=== PATIENT | female | born 1975 | race Caucasian/White ===

== ENCOUNTER 2016-09-30 12:20 | Emergency (ER) | payer MEDICAID ==
[~2016-09-30] VITALS: Wt 55.4 kg
[~2016-09-30 12:20] MED LIST: ACET1TAB40 PO; CLOT30CR24 TOP; HYDR-3010 PO; HYDR-906 PO; IBUP-1542 PO; NAPR-688 PO; VALA500T PO
[2016-09-30] MEDS ORDERED: VALA10004 PO (15:05)
[2016-09-30] MEDS ORDERED: VALA1000 PO (15:06)
--- NOTE | 2016-09-30 15:47 | ERD ---
ER Documentation Chief Complaint Date/Time DATE: 09/30/16 TIME: 15:45 Chief Complaint mouth sore intermittent for the past few months. HPI This is a 40-year-old female presenting to the emergency department complaining of cold sores that are developing her mouth. Patient admits to having a tingling sensation and a history of cold sores. Patient states that it has been coming and going for the past few months. Patient states that she has tried Abreva and cold compresses which did not help her. Patient has not tried any other medications. Patient states that she tried acyclovir in the past. She denies fever ROS All systems reviewed and are negative except as per history of present illness. Medications Home Meds Active Scripts Valacyclovir HCl (Valacyclovir) 1,000 Mg Tablet, 2000 MG PO BID for 1 Day, #8 TAB Prov:BRYANT SMITH PA-C 09/30/16 Valacyclovir HCl (Valtrex) 1,000 Mg Tablet, 500 MG PO BID for 3 Days, #12 TAB Prov:BRYANT SMITH PA-C 09/30/16 Hydrocodone/Acetaminophen ([place] 5-325 Tablet) 1 Each Tablet, 1 TAB PO Q6H Y for PAIN, #10 TAB Prov:JUAN M RODRIGUEZ PA-C 07/09/16 Ibuprofen* (Motrin*) 600 Mg Tab, 600 MG PO Q6, #20 TAB Prov:JUAN M RODRIGUEZ PA-C 07/09/16 Naproxen* (Naproxen*) 500 Mg Tablet, 500 MG PO BID Y for PAIN, #20 TAB Prov:ROBERT HARP DO 05/20/16 Valacyclovir Hcl* (Valacyclovir Hcl*) 500 Mg Tablet, 1000 MG PO ONCE, #20 TAB 2 tabs prn cold sore symptoms. Can repeat in 6 hours as needed. Prov:ROBERT HARP DO 05/20/16 Hydroxyzine Hcl* (Hydroxyzine Hcl*) 10 Mg Tablet, 10 MG PO Q6H Y for ITCHING, # 10 TAB Prov:BERNABE SCHWARTZ NP 12/12/15 Acetaminophen-Codeine* (Acetaminophen-Cod #3*) 300-30 Mg Tab, 1 TAB PO Q4H Y for PAIN, #15 TAB Prov:BERNABE SCHWARTZ NP 12/12/15 Clotrimazole* (Clotrimazole* AF) 1% - 30 Gm Cream.gm., 1 APPLIC TOP BID for 7 Days, TUB Prov:BERNABE SCHWARTZMao BEARD 12/12/15 Allergies Allergies: Coded Allergies: No Known Allergy (Unverified , 12/12/15) PMhx/Soc History of Surgery: No Anesthesia Reaction: No Hx Neurological Disorder: No Hx Respiratory Disorders: No Hx Cardiac Disorders: No Hx Psychiatric Problems: No Hx Miscellaneous Medical Probl: No Hx Alcohol Use: No Hx Substance Use: No Hx Tobacco Use: No Physical Exam Vitals Vital Signs Date Time Temp Pulse Resp B/P Pulse Ox O2 Delivery O2 Flow Rate FiO2 09/30/16 12:23 98.8 75 18 106/55 98 Physical Exam Const: Well-developed well nourished Head: Atraumatic Eyes: Normal Conjunctiva ENT: Normal External Ears, Nose and Mouth. Neck: Full range of motion..~ No meningismus. Resp: Clear to auscultation bilaterally Cardio: Regular rate and rhythm, no murmurs Abd: Soft, non tender, non distended. Normal bowel sounds Skin: Vesicular papules on legs Back: No midline or flank tenderness Ext: No cyanosis, or edema Neur: Awake and alert Psych: Normal Mood and Affect Results 24 hrs This is a 40-year-old female with a history of herpes labialis presenting to the emergency room complaining of vesicular lesions on her lips consistent with herpes labialis. Patient appears well, stable vital signs. I have a low suspicion for cellulitis. Patient is suitable for outpatient prescriptions with valacyclovir, 2000 mg twice daily for 1 day. I discussed with patient to follow-up with her primary care physician. Discussed return to the ER for any worsening signs or symptoms. Patient understands and agrees with this plan Departure Diagnosis: Primary Impression: Herpes labialis Condition: Stable Patient Instructions: Herpes Labialis, Hsv: Type I Additional Instructions: FOLLOW UP WITH YOUR PRIMARY CARE PHYSICIAN TOMORROW.Return to this facility if you are not improving as expected. Take all medicines as directed. Return to this facility if you are not improving as expected. BRYANT SMITH PA-C Sep 30, 2016 15:47
== END 2016-09-30 15:07 | disposition home or self-care (01) ==
LOC: E/R 12:20
DX: B00.1 Herpesviral vesicular dermatitis (principal)
CPT/HCPCS: 99283

== ENCOUNTER 2016-10-23 13:13 | Emergency (ER) | payer MEDICAID ==
[~2016-10-23] VITALS: Wt 54.1 kg
[~2016-10-23 13:13] MED LIST changes: +VALA1000 PO; +VALA10004 PO
[2016-10-23] MEDS ORDERED: ACYC800T57 PO (14:52)
[2016-10-23] MEDS ORDERED: MEDR2.5T PO (14:53)
--- NOTE | 2016-10-23 15:00 | ERD ---
ER Documentation Chief Complaint Date/Time DATE: 10/23/16 TIME: 14:56 Chief Complaint MOUTH SORE FOR THE PST 3 DAYS. NO SOB NO STRIDOR HPI This is a 40-year-old female presents to the ER with recurrent cold sores on her lips. Patient states that she's had herpes for a while and that she's been getting recurrent blisters. Patient was given valacyclovir for 3 days and states that it didn't work. Is requesting a longer course of antivirals. Patient denies any shortness of breath any difficulty in breathing. She denies any fevers or chills. She is additionally complaining of irregular and long menstrual periods. Patient states that 3 months ago she got her period for over a month. Patient got her period 3 weeks ago and states that she is still menstruating. Patient denies any pelvic pain. She denies any urinary frequency or dysuria. She denies any vaginal discharge. She denies any weakness. She denies any chest pain or shortness of breath. Patient states that she uses about 2-3 pads a day. ROS 12 point review of systems was done, all negative except per HPI. Medications Home Meds Active Scripts Medroxyprogesterone Acetate* (Provera*) 2.5 Mg Tablet, 2.5 MG PO DAILY for 5 Days, TAB Prov:NENA KATZ 10/23/16 Acyclovir* (Zovirax*) 800 Mg Tablet, 800 MG PO 5 TIMES DAILY for 7 Days, TAB Prov:NENA KATZ 10/23/16 Valacyclovir HCl (Valacyclovir) 1,000 Mg Tablet, 2000 MG PO BID for 1 Day, #8 TAB Prov:BRYANT SMITH PA-C 09/30/16 Valacyclovir HCl (Valtrex) 1,000 Mg Tablet, 500 MG PO BID for 3 Days, #12 TAB Prov:BRYANT SMITH PA-C 09/30/16 Hydrocodone/Acetaminophen ([place] 5-325 Tablet) 1 Each Tablet, 1 TAB PO Q6H Y for PAIN, #10 TAB Prov:JUAN M RODRIGUEZ PA-C 07/09/16 Ibuprofen* (Motrin*) 600 Mg Tab, 600 MG PO Q6, #20 TAB Prov:JUAN M RODRIGUEZ PA-C 07/09/16 Naproxen* (Naproxen*) 500 Mg Tablet, 500 MG PO BID Y for PAIN, #20 TAB Prov:ROBERT HARP DO 05/20/16 Valacyclovir Hcl* (Valacyclovir Hcl*) 500 Mg Tablet, 1000 MG PO ONCE, #20 TAB 2 tabs prn cold sore symptoms. Can repeat in 6 hours as needed. Prov:ROBERT HARP DO 05/20/16 Hydroxyzine Hcl* (Hydroxyzine Hcl*) 10 Mg Tablet, 10 MG PO Q6H Y for ITCHING, # 10 TAB Prov:BERNABE SCHWARTZ NP 12/12/15 Acetaminophen-Codeine* (Acetaminophen-Cod #3*) 300-30 Mg Tab, 1 TAB PO Q4H Y for PAIN, #15 TAB Prov:BERNABE SCHWARTZ NP 12/12/15 Clotrimazole* (Clotrimazole* AF) 1% - 30 Gm Cream.gm., 1 APPLIC TOP BID for 7 Days, TUB Prov:BERNABE SCHWARZT NP 12/12/15 Allergies Allergies: Coded Allergies: No Known Allergy (Unverified , 12/12/15) PMhx/Soc History of Surgery: No Anesthesia Reaction: No Hx Neurological Disorder: No Hx Respiratory Disorders: No Hx Cardiac Disorders: No Hx Psychiatric Problems: No Hx Miscellaneous Medical Probl: No Hx Alcohol Use: No Hx Substance Use: No Hx Tobacco Use: No Physical Exam Vitals Vital Signs Date Time Temp Pulse Resp B/P Pulse Ox O2 Delivery O2 Flow Rate FiO2 10/23/16 13:27 98.8 101 20 99/51 98 Physical Exam GENERAL: The patient is well developed and appropriate for usual state of health , in no apparent distress. HEENT: Atraumatic. Vesicular lesions on bilateral lips. CHEST: Clear to auscultation bilaterally. There are no rales, wheezes or rhonchi. HEART: Regular rate and rhythm. No murmurs, clicks, rubs or gallops. NEURO: Alert and oriented. Procedures/MDM This is a 40-year-old female presents to the ER with recurrent cold sores. Patient will be given acyclovir for the next 7 days. Patient is also complaining of prolonged menstrual period.. This is likely dysfunctional uterine bleeding. Suspicion for anemia is low. Patient only uses about 2 pads a day. She is well-appearing and she has denied any dizziness or weakness. I advised patient to follow-up with her [employer] as soon as possible for ultrasound to rule out fibroids or any other condition. She'll be given a short course of Provera. I discussed with patient the risks versus the benefits of taking Provera. She understands and still wishes to try it out. Patient needs to follow -up with her primary care doctor within 1-2 days return to ER sooner symptoms worsen. My medical decision making was shared with the patient she understands and agrees with plan. Departure Diagnosis: Primary Impression: Cold sore Condition: Stable Patient Instructions: The Herpes Virus Additional Instructions: Call your primary care doctor TOMORROW for an appointment during the next 1-2 days.See the doctor sooner or return here if your condition worsens before your appointment time. NENA KATZ Oct 23, 2016 15:00
== END 2016-10-24 08:24 | disposition home or self-care (01) ==
LOC: E/R 13:13
DX: B00.1 Herpesviral vesicular dermatitis (principal)
CPT/HCPCS: 99284

== ENCOUNTER 2016-12-04 22:33 | Emergency (ER) | payer MEDICAID ==
[~2016-12-04] VITALS: Ht 160 cm; Wt 56.5 kg
[~2016-12-04 22:33] MED LIST changes: +ACYC800T57 PO; +MEDR2.5T PO
[2016-12-04 22:35] VITALS: Ht 160 cm; Wt 56.5 kg
[2016-12-04] MEDS ORDERED: ACYC800T57 PO (23:22)
--- NOTE | 2016-12-05 00:15 | ERD ---
ER Documentation Chief Complaint Date/Time DATE: 12/05/16 TIME: 00:12 Chief Complaint mouth sores HPI 40-year-old female patient with a past medical history of HSV 1 labialis presents to the ED complaining of recurrent cold sores that started again a few days ago. States that she was treated on October 23, 2016 and her cold sores resolved with acyclovir. Denies any chest pain, shortness of breath, abdominal pain, nausea, vomiting, diarrhea. States that she is here for a refill for her acyclovir. Denies any rashes on her genitalia, vaginal discharge, vaginal bleeding. Denies any dysphagia, odynophagia. ROS All systems reviewed and are negative except as per history of present illness. Medications Home Meds Active Scripts Acyclovir* (Zovirax*) 800 Mg Tablet, 800 MG PO 5 TIMES DAILY for 7 Days, TAB Prov:GUY SANTILLAN PA-C 12/04/16 Medroxyprogesterone Acetate* (Provera*) 2.5 Mg Tablet, 2.5 MG PO DAILY for 5 Days, TAB Prov:NENA KATZ 10/23/16 Acyclovir* (Zovirax*) 800 Mg Tablet, 800 MG PO 5 TIMES DAILY for 7 Days, TAB Prov:NENA KATZ 10/23/16 Valacyclovir HCl (Valacyclovir) 1,000 Mg Tablet, 2000 MG PO BID for 1 Day, #8 TAB Prov:BRYANT SMITH PA-C 09/30/16 Valacyclovir HCl (Valtrex) 1,000 Mg Tablet, 500 MG PO BID for 3 Days, #12 TAB Prov:BRYANT SMITH PA-C 09/30/16 Hydrocodone/Acetaminophen ([place] 5-325 Tablet) 1 Each Tablet, 1 TAB PO Q6H Y for PAIN, #10 TAB Prov:JUAN M RODRIGUEZ PA-C 07/09/16 Ibuprofen* (Motrin*) 600 Mg Tab, 600 MG PO Q6, #20 TAB Prov:JUAN M RODRIGUEZ PA-C 07/09/16 Naproxen* (Naproxen*) 500 Mg Tablet, 500 MG PO BID Y for PAIN, #20 TAB Prov:ROBERT HARP DO 05/20/16 Valacyclovir Hcl* (Valacyclovir Hcl*) 500 Mg Tablet, 1000 MG PO ONCE, #20 TAB 2 tabs prn cold sore symptoms. Can repeat in 6 hours as needed. Prov:ROBERT HARP DO 05/20/16 Hydroxyzine Hcl* (Hydroxyzine Hcl*) 10 Mg Tablet, 10 MG PO Q6H Y for ITCHING, # 10 TAB Prov:BERNABE SCHWARTZ NP 12/12/15 Acetaminophen-Codeine* (Acetaminophen-Cod #3*) 300-30 Mg Tab, 1 TAB PO Q4H Y for PAIN, #15 TAB Prov:BERNABE SCHWARTZ NP 12/12/15 Clotrimazole* (Clotrimazole* AF) 1% - 30 Gm Cream.gm., 1 APPLIC TOP BID for 7 Days, TUB Prov:BERNABE SCHWARTZ NP 12/12/15 Allergies Allergies: Coded Allergies: No Known Allergy (Unverified , 12/12/15) PMhx/Soc Medical and Surgical Hx: pt denies Medical Hx History of Surgery: Yes (c/section x1) Anesthesia Reaction: No Hx Neurological Disorder: No Hx Respiratory Disorders: No Hx Cardiac Disorders: No Hx Psychiatric Problems: No Hx Miscellaneous Medical Probl: No Hx Alcohol Use: No Hx Substance Use: No Hx Tobacco Use: No Smoking Status: Never smoker Physical Exam Vitals Vital Signs Date Time Temp Pulse Resp B/P Pulse Ox O2 Delivery O2 Flow Rate FiO2 12/04/16 22:35 97.8 81 20 101/55 99 Physical Exam Const: [id number], well-nourished. In no acute distress. Head: Atraumatic, normocephalic Eyes: Normal Conjunctiva without injection. No purulent discharge. PERRL. EOMI ENT: Normal external ear. Ear canal without erythema. Tympanic membrane pearly camacho without effusion or bulging. Nasal canal clear with normal turbinates. Vesicular lesion surrounding the mouth with erythema. Moist oropharynx without tonsillar exudates. Non-erythematous pharynx. Uvula midline. No drooling. No trismus. Neck: Full range of motion. No meningismus. No cervical lymphadenopathy. Resp: Clear to auscultation bilaterally. No wheezing, rhonchi, rales, or crackles. No accessory muscle use. No retractions. Cardio: Regular rate and rhythm. No murmurs, rubs or gallops. Skin: No petechiae or rashes Neur: Awake and alert. Psych: Normal Mood and Affect Procedures/MDM This is a 40-year-old female with a past medical history of HSV 1 labialis presents to the ED complaining of recurrent cold sores. Patient is afebrile and nontoxic-appearing. Patient has normal vital signs. Patient was given a prescription for acyclovir as she stated that it works for her symptoms. Low suspicion for shingles, herpes ophthalmicus, Dewey Stiles Syndrome, allergic contact dermatitis, urticaria, insect bites, eczema, tinea infection, psoriasis , scabies, SJS/TEN, erythema multiforme, sepsis, cellulitis, necrotizing fascitis, gangrene, meningococcemia or other emergent conditions. Discharge medications: Acyclovir Follow up with primary care physician in 1-2 days. Instructed patient to return to the ED sooner for any worsening symptoms. Patient's questions were answered. Patient understood and agreed with discharge plan. Patient discharged stable. Departure Diagnosis: Primary Impression: Recurrent cold sores Condition: Stable Patient Instructions: Control Options, Herpes Labialis, Hsv: Type I Referrals: [facility] YOU HAVE RECEIVED A MEDICAL SCREENING EXAM AND THE RESULTS INDICATE THAT YOU DO NOT HAVE A CONDITION THAT REQUIRES URGENT TREATMENT IN THE EMERGENCY DEPARTMENT. FURTHER EVALUATION AND TREATMENT OF YOUR CONDITION CAN WAIT UNTIL YOU ARE SEEN IN YOUR DOCTORS OFFICE WITHIN THE NEXT 1-2 DAYS. IT IS YOUR RESPONSIBILITY TO MAKE AN APPOINTMENT FOR FOLOW-UP CARE. IF YOU HAVE A PRIMARY DOCTOR --you should call your primary doctor and schedule an appointment IF YOU DO NOT HAVE A PRIMARY DOCTOR YOU CAN CALL OUR PHYSICIAN REFERRAL HOTLINE AT IF YOU CAN NOT AFFORD TO SEE A PHYSICIAN YOU CAN CHOSE FROM THE FOLLOWING [facility] [address] [facility] [address] [facility]. [facility] [address] [facility] [address] [facility] [address] [facility]. [facility]. [address] [facility]. [facility] YOU HAVE RECEIVED A MEDICAL SCREENING EXAM AND THE RESULTS INDICATE THAT YOU DO NOT HAVE A CONDITION THAT REQUIRES URGENT TREATMENT IN THE EMERGENCY DEPARTMENT. FURTHER EVALUATION AND TREATMENT OF YOUR CONDITION CAN WAIT UNTIL YOU ARE SEEN IN YOUR DOCTORS OFFICE WITHIN THE NEXT 1-2 DAYS. IT IS YOUR RESPONSIBILITY TO MAKE AN APPOINTMENT FOR FOLOW-UP CARE. IF YOU HAVE A PRIMARY DOCTOR --you should call your primary doctor and schedule and appointment IF YOU DO NOT HAVE A PRIMARY DOCTOR YOU CAN CALL OUR PHYSICIAN REFERRAL HOTLINE AT . IF YOU CAN NOT AFFORD TO SEE A PHYSICIAN YOU CAN CHOSE FROM THE FOLLOWING [facility] INSTITUTIONS: [facility] [address] [place] [address] [facility] [address] [place] [address] [facility] [address] [place] [address] [facility] URGENT CARE/SPECIALTIES [employer] [place] [address] [facility] [address] [place] [address] OFFICE FAX , [facility] [address] [place], [place] [id number] [facility] [address] [place] [address] [address] [facility], [address], [facility] [address] [address] [address] [place] [address] [facility] [address] [place] [address] [address] [facility] [id number] - LASHANDA MILLER [address], [facility] [address] [address]ARDID, [place] [address] [facility]. [address], [facility] [address] [address] [facility] [address] [place] [address] [facility] Hours: 8:00 am - 5:00 pm Additional Instructions: Call your primary care doctor TOMORROW for an appointment during the next 1-2 days.See the doctor sooner or return here if your condition worsens before your appointment time. GUY SANTILLAN PA-C Dec 05, 2016 00:15
== END 2016-12-04 23:44 | disposition home or self-care (01) ==
LOC: FTE 22:33
DX: B00.1 Herpesviral vesicular dermatitis (principal)
CPT/HCPCS: 99283

== ENCOUNTER 2016-12-26 13:05 | Emergency (ER) | payer MEDICAID ==
[~2016-12-26] VITALS: Ht 160 cm; Wt 56.0 kg
[2016-12-26 13:15] VITALS: Ht 160 cm; Wt 56.0 kg
[2016-12-26] MEDS ORDERED: EPIN0.3P4 INJ (13:39)
[2016-12-26] MEDS ORDERED: BEN25 PO (13:39)
--- NOTE | 2016-12-26 13:53 | ERD ---
ER Documentation Chief Complaint Date/Time DATE: 12/26/16 TIME: 13:50 Chief Complaint allergic reaction itching on face and arms HPI 41-year-old female presents emergency department with zane-aural swelling, itching and rash to the chest and arms that started this morning. She states that she ate fish, this is a fish that she normally does not eat and was from a [place] food yesterday around 11 PM. Patient states that she has seen this many years ago, and she normally eats different types of fish including salmon has never had a problem. She has not had any trouble swallowing, voice changes , drooling. She denies any prior food or known drug allergies. ROS All systems reviewed and are negative except as per history of present illness. Medications Home Meds Active Scripts Epinephrine (Epipen 2-Paco) 0.3 Mg/0.3 Ml Pen.injctr, 1 EA INJ ONCE Y for ALLERGIC REACTION, #1 EA Prov:JUAN M RODRIGUEZ PA-C 12/26/16 Diphenhydramine Hcl* (Benadryl*) 25 Mg Cap, 25 MG PO Q6, #30 CAP Prov:JUAN M RODRIGUEZ PA-C 12/26/16 Acyclovir* (Zovirax*) 800 Mg Tablet, 800 MG PO 5 TIMES DAILY for 7 Days, TAB Prov:GUY SANTILLAN PA-C 12/04/16 Medroxyprogesterone Acetate* (Provera*) 2.5 Mg Tablet, 2.5 MG PO DAILY for 5 Days, TAB Prov:NENA KATZ 10/23/16 Acyclovir* (Zovirax*) 800 Mg Tablet, 800 MG PO 5 TIMES DAILY for 7 Days, TAB Prov:NENA KATZ 10/23/16 Valacyclovir HCl (Valacyclovir) 1,000 Mg Tablet, 2000 MG PO BID for 1 Day, #8 TAB Prov:BRYANT SMITH PA-C 09/30/16 Valacyclovir HCl (Valtrex) 1,000 Mg Tablet, 500 MG PO BID for 3 Days, #12 TAB Prov:BRYANT SMITH PA-C 09/30/16 Hydrocodone/Acetaminophen ([place] 5-325 Tablet) 1 Each Tablet, 1 TAB PO Q6H Y for PAIN, #10 TAB Prov:JUAN M RODRIGUEZ PA-C 07/09/16 Ibuprofen* (Motrin*) 600 Mg Tab, 600 MG PO Q6, #20 TAB Prov:JUAN M RODRIGUEZ PA-C 07/09/16 Naproxen* (Naproxen*) 500 Mg Tablet, 500 MG PO BID Y for PAIN, #20 TAB Prov:LOYDROBERT DO 05/20/16 Valacyclovir Hcl* (Valacyclovir Hcl*) 500 Mg Tablet, 1000 MG PO ONCE, #20 TAB 2 tabs prn cold sore symptoms. Can repeat in 6 hours as needed. Prov:LOYDROBERTPAULO SHIPLEY 05/20/16 Hydroxyzine Hcl* (Hydroxyzine Hcl*) 10 Mg Tablet, 10 MG PO Q6H Y for ITCHING, # 10 TAB Prov:BENRABE SCHWARTZ NP 12/12/15 Acetaminophen-Codeine* (Acetaminophen-Cod #3*) 300-30 Mg Tab, 1 TAB PO Q4H Y for PAIN, #15 TAB Prov:BERNABE SCHWARTZ NP 12/12/15 Clotrimazole* (Clotrimazole* AF) 1% - 30 Gm Cream.gm., 1 APPLIC TOP BID for 7 Days, TUB Prov:BERNABE SCHWARTZ NP 12/12/15 Allergies Allergies: Coded Allergies: No Known Allergy (Unverified , 12/26/16) PMhx/Soc History of Surgery: Yes (c/section x1, cholecystectomy ) Anesthesia Reaction: No Hx Neurological Disorder: No Hx Respiratory Disorders: No Hx Cardiac Disorders: No Hx Psychiatric Problems: No Hx Miscellaneous Medical Probl: No Hx Alcohol Use: No Hx Substance Use: No Hx Tobacco Use: No Smoking Status: Never smoker Physical Exam Vitals Vital Signs Date Time Temp Pulse Resp B/P Pulse Ox O2 Delivery O2 Flow Rate FiO2 12/26/16 13:15 98.1 93 20 131/68 98 Physical Exam General: Well-developed, well-nourished. The patient appears in no acute distress. HEENT: Head is normocephalic, atraumatic. No scleral icterus. Oropharynx is clear, no voice changes. No angioedema. There is perioral swelling and mild swelling to the lips at the border. Neck: Supple. Nontender. Lungs: Clear to auscultation. Normal air movement. Heart: Regular rate and rhythm. S1 and S2 are normal. No murmurs, gallops, or rubs. Abdomen: Soft, nontender, nondistended. Bowel sounds are normoactive. Extremities: No clubbing or cyanosis. Normal pulses. Moving extremities x 4. No weakness. Neurologic: Alert and oriented 3. No focal deficits. Skin: Normal turgor. No rash or lesions. Results 24 hrs Current Medications Medications (Trade) Dose Ordered Sig/Mariana Route PRN Reason Start Time Stop Time Status Last Admin Dose Admin Dexamethasone (Decadron) 10 mg ONCE ONCE IM 12/26/16 14:00 12/26/16 14:01 DC 12/26/16 13:42 Diphenhydramine HCl (Benadryl) 25 mg ONCE ONCE IM 12/26/16 14:00 12/26/16 14:01 DC 12/26/16 13:42 Procedures/MDM ED course: She was given Decadron 10 mg IM, Benadryl 25 mg IM. Patient's allergic symptoms have stabilized while they have been evaluated in the department without evidence of persistent systemic reaction. Patient is healthy and capable of treating and responding to rebound reactions. Patient appropriate for outpatient allergy work up and treatment. Departure Diagnosis: Primary Impression: Allergic reaction Condition: Good Patient Instructions: Food Allergy Additional Instructions: Call your primary care doctor TOMORROW for an appointment during the next 1-2 days.See the doctor sooner or return here if your condition worsens before your appointment time. JUAN M RODRIGUEZ PA-C December 26, 2016 13:53
[2016-12-26] MEDS ORDERED: DIPHENHYDRAMINE 50 MG INJ IM ONE (14:00)
[2016-12-26] MEDS ORDERED: DEXAMETHASONE 10 MG/ML 1 ML INJ IM ONE (14:00)
== END 2016-12-26 14:03 | disposition home or self-care (01) ==
LOC: FTE 13:05
DX: L29.9 Pruritus, unspecified (principal)
CPT/HCPCS: 96372; J1100; J1200; Z7502

== ENCOUNTER 2017-02-23 15:02 | Emergency (ER) | payer MEDICAID ==
[~2017-02-23] VITALS: Ht 160 cm; Wt 58.5 kg
[~2017-02-23 15:02] MED LIST changes: +BEN25 PO; +EPIN0.3P4 INJ
[2017-02-23 15:16] VITALS: Ht 160 cm; Wt 58.5 kg
[2017-02-23] MEDS ORDERED: DIPHENHYDRAMINE 25 MG CAP PO ONE (16:00)
[2017-02-23] MEDS ORDERED: DEXAMETHASONE 10 MG/ML 1 ML INJ IM ONE (16:00)
[2017-02-23] MEDS ORDERED: HC30CR25 TOP (16:25)
[2017-02-23] MEDS ORDERED: BEN25 PO (16:25)
[2017-02-23] MEDS ORDERED: EPIN0.3P4 INJ (16:25)
--- NOTE | 2017-02-23 17:37 | ERD ---
ER Documentation Chief Complaint Date/Time DATE: 02/23/17 TIME: 17:33 Chief Complaint ALLERGIC REACTION WITH UNKNOWN CAUSE, SOB AND FACIAL REDNESS, STABLE HPI 41-year-old female patient with no significant past medical history presents to the ED complaining of a rash that started on her face as well as her bilateral hands after eating a dessert with pecans. States that this happened about 3 days ago. Reports that her rash is itchy. States that she has been scratching the rash is significantly. Denies any fever, chills, abdominal pain, nausea, vomiting, headache, weakness, numbness or tingling. Denies any sick contacts. Denies others having the rash. States that she has not followed up with her primary care physician for allergy testing. Denies any new use of soaps, detergents, creams, insect bites. ROS All systems reviewed and are negative except as per history of present illness. Medications Home Meds Active Scripts Epinephrine (Epipen 2-Paco) 0.3 Mg/0.3 Ml Pen.injctr, 1 EA INJ ONCE Y for ALLERGIC REACTION, #1 EA Prov:GUY SANTILLAN PA-C 02/23/17 Hydrocortisone* Topical (Hydrocortisone* Topical) 2.5%-28.3 Gm Cream..g., 1 APPLIC TOP BID, #1 TUB Prov:GUY SANTILLAN PA-C 02/23/17 Diphenhydramine Hcl* (Benadryl*) 25 Mg Cap, 25 MG PO Q6 Y for ITCHING/RASH, #30 TAB Prov:GUY SANTILLAN PA-C 02/23/17 Epinephrine (Epipen 2-Paco) 0.3 Mg/0.3 Ml Pen.injctr, 1 EA INJ ONCE Y for ALLERGIC REACTION, #1 EA Prov:JUAN M RODRIGUEZ PA-C 12/26/16 Diphenhydramine Hcl* (Benadryl*) 25 Mg Cap, 25 MG PO Q6, #30 CAP Prov:JUAN M RODRIGUEZ PA-C 12/26/16 Acyclovir* (Zovirax*) 800 Mg Tablet, 800 MG PO 5 TIMES DAILY for 7 Days, TAB Prov:GUY SANTILLAN PA-C 12/04/16 Medroxyprogesterone Acetate* (Provera*) 2.5 Mg Tablet, 2.5 MG PO DAILY for 5 Days, TAB Prov:NENA KATZ 10/23/16 Acyclovir* (Zovirax*) 800 Mg Tablet, 800 MG PO 5 TIMES DAILY for 7 Days, TAB Prov:NENA KATZ 10/23/16 Valacyclovir HCl (Valacyclovir) 1,000 Mg Tablet, 2000 MG PO BID for 1 Day, #8 TAB Prov:BRYANT SMITH PA-C 09/30/16 Valacyclovir HCl (Valtrex) 1,000 Mg Tablet, 500 MG PO BID for 3 Days, #12 TAB Prov:BRYANT SMITHC 09/30/16 Hydrocodone/Acetaminophen ([place] 5-325 Tablet) 1 Each Tablet, 1 TAB PO Q6H Y for PAIN, #10 TAB Prov:JUAN M RODRIGUEZ PA-C 07/09/16 Ibuprofen* (Motrin*) 600 Mg Tab, 600 MG PO Q6, #20 TAB Prov:JUAN M RODRIGUEZ PA-C 07/09/16 Naproxen* (Naproxen*) 500 Mg Tablet, 500 MG PO BID Y for PAIN, #20 TAB Prov:ROBERT HARP DO 05/20/16 Valacyclovir Hcl* (Valacyclovir Hcl*) 500 Mg Tablet, 1000 MG PO ONCE, #20 TAB 2 tabs prn cold sore symptoms. Can repeat in 6 hours as needed. Prov:ROBERT HARP DO 05/20/16 Hydroxyzine Hcl* (Hydroxyzine Hcl*) 10 Mg Tablet, 10 MG PO Q6H Y for ITCHING, # 10 TAB Prov:BERNABE SCHWARTZ NP 12/12/15 Acetaminophen-Codeine* (Acetaminophen-Cod #3*) 300-30 Mg Tab, 1 TAB PO Q4H Y for PAIN, #15 TAB Prov:BERNABE SCHWARTZ NP 12/12/15 Clotrimazole* (Clotrimazole* AF) 1% - 30 Gm Cream.gm., 1 APPLIC TOP BID for 7 Days, TUB Prov:BERNABE SCHWARTZ NP 12/12/15 Allergies Allergies: Coded Allergies: No Known Allergy (Unverified , 12/26/16) PMhx/Soc History of Surgery: Yes (c/section x1, cholecystectomy ) Anesthesia Reaction: No Hx Neurological Disorder: No Hx Respiratory Disorders: No Hx Cardiac Disorders: No Hx Psychiatric Problems: No Hx Miscellaneous Medical Probl: No Hx Alcohol Use: No Hx Substance Use: No Hx Tobacco Use: No Physical Exam Vitals Vital Signs Date Time Temp Pulse Resp B/P Pulse Ox O2 Delivery O2 Flow Rate FiO2 02/23/17 15:16 99.0 95 18 100/57 99 Physical Exam Const: [id number], well-nourished. In no acute distress. Head: Atraumatic, normocephalic Eyes: Normal Conjunctiva without injection. No purulent discharge. PERRL. EOMI ENT: Normal external ear. Ear canal without erythema. Tympanic membrane pearly camacho without effusion or bulging. Nasal canal clear with normal turbinates. Moist oropharynx without tonsillar exudates. Non-erythematous pharynx. Uvula midline. No drooling. No trismus. No angioedema noted. No tongue swelling. Neck: Full range of motion. No meningismus. No cervical lymphadenopathy. Resp: Clear to auscultation bilaterally. No wheezing, rhonchi, rales, or crackles. No accessory muscle use. No retractions. Cardio: Regular rate and rhythm. No murmurs, rubs or gallops. Abd: Soft, non tender, non distended. Normal bowel sounds. No palpable masses. No rebound tenderness. No guarding. Skin: No petechiae, purpura. Erythematous urticaria noted on her bilateral cheeks as well as dorsal aspect of bilateral hands. No fluctuance or induration. No bleeding noted. No purulent discharge. Back: No midline tenderness. No CVA tenderness. Ext: No cyanosis, or edema. Neur: Awake and alert. Psych: Normal Mood and Affect Results 24 hrs Current Medications Medications (Trade) Dose Ordered Sig/Mariana Route PRN Reason Start Time Stop Time Status Last Admin Dose Admin Dexamethasone (Decadron) 10 mg ONCE ONCE IM 02/23/17 16:00 02/23/17 16:01 DC 02/23/17 16:04 Diphenhydramine HCl (Benadryl) 25 mg ONCE ONCE PO 02/23/17 16:00 02/23/17 16:01 DC 02/23/17 16:03 Procedures/MDM This is a 41-year-old female patient with no significant past medical history presents the ED complaining of a rash. Patient is afebrile and nontoxic- appearing. Patient has normal vital signs. Patient's urticaria is likely secondary to an reaction from eating pecans. Patient was treated here in the ED with Decadron, Benadryl with improvement of her symptoms. Low suspicion for scabies, anaphylaxis, SJS/TEN, erythema multiforme, sepsis, cellulitis, necrotizing fascitis, gangrene, meningococcemia or other emergent conditions. Discharge medications: EpiPen, Benadryl, Hydrocortisone cream Follow up with primary care physician in 1-2 days for a referral for allergy testing. Instructed patient to return to the ED sooner for any worsening symptoms. Patient's questions were answered. Patient understood and agreed with discharge plan. Patient discharged stable. Departure Diagnosis: Primary Impression: Allergic reaction Encounter type: initial encounter Qualified Code: T78.40XA - Allergic reaction, initial encounter Condition: Stable Patient Instructions: First Aid: Allergic Reactions, Allergic Reaction, Other ( Local) Referrals: [facility] YOU HAVE RECEIVED A MEDICAL SCREENING EXAM AND THE RESULTS INDICATE THAT YOU DO NOT HAVE A CONDITION THAT REQUIRES URGENT TREATMENT IN THE EMERGENCY DEPARTMENT. FURTHER EVALUATION AND TREATMENT OF YOUR CONDITION CAN WAIT UNTIL YOU ARE SEEN IN YOUR DOCTORS OFFICE WITHIN THE NEXT 1-2 DAYS. IT IS YOUR RESPONSIBILITY TO MAKE AN APPOINTMENT FOR FOLOW-UP CARE. IF YOU HAVE A PRIMARY DOCTOR --you should call your primary doctor and schedule an appointment IF YOU DO NOT HAVE A PRIMARY DOCTOR YOU CAN CALL OUR PHYSICIAN REFERRAL HOTLINE AT IF YOU CAN NOT AFFORD TO SEE A PHYSICIAN YOU CAN CHOSE FROM THE FOLLOWING [facility] CLINICS [facility] [address] [facility] [address] [facility] [address] [facility] [address] [facility] [address] [facility]. [facility]. [address] [facility]. [facility] YOU HAVE RECEIVED A MEDICAL SCREENING EXAM AND THE RESULTS INDICATE THAT YOU DO NOT HAVE A CONDITION THAT REQUIRES URGENT TREATMENT IN THE EMERGENCY DEPARTMENT. FURTHER EVALUATION AND TREATMENT OF YOUR CONDITION CAN WAIT UNTIL YOU ARE SEEN IN YOUR DOCTORS OFFICE WITHIN THE NEXT 1-2 DAYS. IT IS YOUR RESPONSIBILITY TO MAKE AN APPOINTMENT FOR FOLOW-UP CARE. IF YOU HAVE A PRIMARY DOCTOR --you should call your primary doctor and schedule and appointment IF YOU DO NOT HAVE A PRIMARY DOCTOR YOU CAN CALL OUR PHYSICIAN REFERRAL HOTLINE AT . IF YOU CAN NOT AFFORD TO SEE A PHYSICIAN YOU CAN CHOSE FROM THE FOLLOWING [facility] INSTITUTIONS: [facility] [id number] [place] [address] [facility] [address] [place] [address] [facility] [address] [place] [address] [facility] URGENT CARE/SPECIALTIES Additional Instructions: FOLLOW UP WITH YOUR PRIMARY CARE PHYSICIAN TOMORROW for allergy testing.Return to this facility if you are not improving as expected - shortness of breath, lip swelling, tongue swelling, fever, chills. GUY SANTILLAN PA-C Feb 23, 2017 17:36 GUY SANTILLAN PA-C Feb 23, 2017 17:36
== END 2017-02-23 16:38 | disposition home or self-care (01) ==
LOC: FTE 15:02
DX: R21 Rash and other nonspecific skin eruption (principal)
CPT/HCPCS: 96372; J1100; Z7502; Z7610

== ENCOUNTER 2017-05-01 14:34 | Emergency (ER) | payer MEDICAID ==
[~2017-05-01] VITALS: Ht 152.4 cm; Wt 59.5 kg
[~2017-05-01 14:34] MED LIST changes: +HC30CR25 TOP
[2017-05-01 14:39] VITALS: Ht 152.4 cm; Wt 59.5 kg
[2017-05-01] MEDS ORDERED: CETI10CA PO (16:38)
[2017-05-01] MEDS ORDERED: PRED20TA PO (16:38)
[2017-05-01] MEDS ORDERED: HC30CR25 TOP (16:38)
--- NOTE | 2017-05-01 16:41 | ERD ---
ER Documentation Chief Complaint Date/Time DATE: 05/01/17 TIME: 16:40 Chief Complaint Compplains of generalized rash to body HPI This 41-year-old female presents with a rash primarily on her neck and hands over the last week. She denies any previous history denies any new foods or new medications are known possible allergens. She denies fevers, vomiting, shortness breath or chest pain. ROS All systems reviewed and are negative except as per history of present illness. Medications Home Meds Active Scripts Prednisone* (Prednisone*) 20 Mg Tab, 40 MG PO DAILY for 5 Days, TAB Prov:NINFA WALTERS MD 05/01/17 Cetirizine Hcl* (Zyrtec*) 10 Mg Capsule, 10 MG PO DAILY, #15 TAB.CHEW Prov:NIFNA WALTERS MD 05/01/17 Hydrocortisone* Topical (Hydrocortisone* Topical) 2.5%-28.3 Gm Cream..g., 1 APPLIC TOP BID for 7 Days, #1 TUB Prov:NINFA WALTERS MD 05/01/17 Epinephrine (Epipen 2-Paco) 0.3 Mg/0.3 Ml Pen.injctr, 1 EA INJ ONCE Y for ALLERGIC REACTION, #1 EA Prov:GUY SANTILLAN PA-C 02/23/17 Hydrocortisone* Topical (Hydrocortisone* Topical) 2.5%-28.3 Gm Cream..g., 1 APPLIC TOP BID, #1 TUB Prov:GUY SANTILLAN PA-C 02/23/17 Diphenhydramine Hcl* (Benadryl*) 25 Mg Cap, 25 MG PO Q6 Y for ITCHING/RASH, #30 TAB Prov:GUY SANTILLAN PA-C 02/23/17 Epinephrine (Epipen 2-Paco) 0.3 Mg/0.3 Ml Pen.injctr, 1 EA INJ ONCE Y for ALLERGIC REACTION, #1 EA Prov:JUAN M RODRIGUEZ PA-C 12/26/16 Diphenhydramine Hcl* (Benadryl*) 25 Mg Cap, 25 MG PO Q6, #30 CAP Prov:JUAN M RODRIGUEZ PA-C 12/26/16 Acyclovir* (Zovirax*) 800 Mg Tablet, 800 MG PO 5 TIMES DAILY for 7 Days, TAB Prov:GUY SANTILLAN PA-C 12/04/16 Medroxyprogesterone Acetate* (Provera*) 2.5 Mg Tablet, 2.5 MG PO DAILY for 5 Days, TAB Prov:NENA KATZ 10/23/16 Acyclovir* (Zovirax*) 800 Mg Tablet, 800 MG PO 5 TIMES DAILY for 7 Days, TAB Prov:NENA KATZ 10/23/16 Valacyclovir HCl (Valacyclovir) 1,000 Mg Tablet, 2000 MG PO BID for 1 Day, #8 TAB Prov:BRYANT SMITH PA-C 09/30/16 Valacyclovir HCl (Valtrex) 1,000 Mg Tablet, 500 MG PO BID for 3 Days, #12 TAB Prov:BRYANT SMITH PA-C 09/30/16 Hydrocodone/Acetaminophen ([place] 5-325 Tablet) 1 Each Tablet, 1 TAB PO Q6H Y for PAIN, #10 TAB Prov:JUAN M RODRIGUEZ PA-C 07/09/16 Ibuprofen* (Motrin*) 600 Mg Tab, 600 MG PO Q6, #20 TAB Prov:JUAN M RODRIGUEZ PA-C 07/09/16 Naproxen* (Naproxen*) 500 Mg Tablet, 500 MG PO BID Y for PAIN, #20 TAB Prov:ROBERT HARP DO 05/20/16 Valacyclovir Hcl* (Valacyclovir Hcl*) 500 Mg Tablet, 1000 MG PO ONCE, #20 TAB 2 tabs prn cold sore symptoms. Can repeat in 6 hours as needed. Prov:ROBERT HARP DO 05/20/16 Hydroxyzine Hcl* (Hydroxyzine Hcl*) 10 Mg Tablet, 10 MG PO Q6H Y for ITCHING, # 10 TAB Prov:BERNABE SCHWARTZ NP 12/12/15 Acetaminophen-Codeine* (Acetaminophen-Cod #3*) 300-30 Mg Tab, 1 TAB PO Q4H Y for PAIN, #15 TAB Prov:BERNABE SCHWARTZ NP 12/12/15 Clotrimazole* (Clotrimazole* AF) 1% - 30 Gm Cream.gm., 1 APPLIC TOP BID for 7 Days, TUB Prov:BERNABE SCHWARTZ NP 12/12/15 Allergies Allergies: Coded Allergies: No Known Allergy (Unverified , 05/01/17) PMhx/Soc History of Surgery: Yes (c/section x1, cholecystectomy ) Anesthesia Reaction: No Hx Neurological Disorder: No Hx Respiratory Disorders: No Hx Cardiac Disorders: No Hx Psychiatric Problems: No Hx Miscellaneous Medical Probl: No Hx Alcohol Use: No Hx Substance Use: No Hx Tobacco Use: No Smoking Status: Never smoker Physical Exam Vitals Vital Signs Date Time Temp Pulse Resp B/P Pulse Ox O2 Delivery O2 Flow Rate FiO2 05/01/17 14:39 98.3 81 20 111/68 98 Physical Exam Const: [], Pleasant, [id number]. Head: Atraumatic Eyes: Normal Conjunctiva ENT: Normal External Ears, Nose and Mouth. Neck: Full range of motion..~ No meningismus. Resp: Clear to auscultation bilaterally Cardio: Regular rate and rhythm, no murmurs Abd: Soft, non tender, non distended. Normal bowel sounds Skin: No petechiae or purpura. There is a scattered excoriated rashes with a few we will type lesions on prior to her neck primarily and anterior chest. Also excoriated macular papular rash on the dorsums of her wrists and hands. There is no warmth, erythema, palmar lesions, vesicles. Back: No midline or flank tenderness Ext: No cyanosis, or edema Neur: Awake and alert Psych: Normal Mood and Affect Procedures/MDM Resents with neck somatic type rash on the neck and the wrists and hands. It has a clinical appearance of eczema or atopic dermatitis. She will be treated empirically with prednisone, Zyrtec and hydrocortisone and primary care follow- up and return precautions. Is no evidence of cellulitis, purpura, life- threatening rashes. There is no evidence of anaphylaxis. The patient was stable with no new complaints during the ER course. Clinically, there is no current evidence to suggest meningitis, sepsis, acute abdomen, pneumonia, acute coronary syndrome, pulmonary embolism, or any other emergent condition appearing to require further evaluation or hospitalization. The patient should certainly return for any new or worsening symptoms per the aftercare instructions. They should otherwise follow-up with her primary care doctor for reevaluation this week. Disclaimer: Inadvertent spelling and grammatical errors are likely due to EHR/dictation software use and do not reflect on the overall quality of patient care. Also, please note that the electronic time recorded on this note does not necessarily reflect the actual time of the patient encounter. Departure Diagnosis: Primary Impression: Rash Condition: Stable Patient Instructions: Atopic Dermatitis (Eczema), Dermatitis, Non-Specific Additional Instructions: The allergic or eczema type rash. Recheck with primary doctor or for new or worsening symptoms. Observe environment for potential causes. NINFA WALTERS MD May 01, 2017 16:41
== END 2017-05-01 17:15 | disposition home or self-care (01) ==
LOC: FTE 14:34
DX: R21 Rash and other nonspecific skin eruption (principal)
CPT/HCPCS: 99283